=== PATIENT | female | born 1955 | race Caucasian/White ===

== ENCOUNTER → 2017-12-29 16:19 | Outpatient (CLI) | payer BC, SELFPAY ==
--- NOTE | 2017-12-29 16:24 | MM_ITS ---
MM Dig screening mamm BI w/CAD CAD Screening COMPARISON: Digital mammograms with CAD 02/15/2016 and 02/12/2014 INDICATION: There is no personal or family history of breast cancer. TECHNIQUE: Standard CC and MLO images were obtained. R2 CAD reviewed. FINDINGS: Prominent heterogenic fibroglandular densities are seen in the central portions of both breast and the findings are bilateral and symmetrical. There are few benign-appearing calcifications in each breast. There is no suspicious lesion and there are no suspicious microcalcifications. IMPRESSION: Moderate heterogenic breast density with no suspicious lesion seen BI-RADS Category: 2 Benign Finding(s) RECOMMENDED FOLLOW-UP: 1YR - 1 YEAR FOLLOW-UP (A letter has been sent to the patient regarding results of the study.)
== END ==
PROVIDERS: Family Provider Internal Medicine; PCP Internal Medicine; Visit Provider Internal Medicine
DX: Z12.31 Encounter for screening mammogram for malignant neoplasm of breast (principal)
CPT/HCPCS: 77067

== ENCOUNTER → 2018-02-13 10:36 | Outpatient (CLI) | payer BC, SELFPAY ==
--- NOTE | 2018-02-13 10:44 | XR_ITS ---
EXAM: XR cervical spine 5V HISTORY: ITS.REASON: NECK PAIN, LT ARM PAIN, HTN ORDERING PHYSICIAN: Joe Sorenson PATIENT AGE: 63 years COMPARISON: None FINDINGS: There is normal alignment. There has been prior anterior cervical disc fusion with a bone plate anteriorly at C5-C6 and C7. There is good alignment. There are disc spacers at these levels. There is mild foraminal narrowing on the left at C3-C4 and C4-C5 from facet hypertrophic change. IMPRESSION: Prior anterior cervical disc fusion with good alignment. Mild left foraminal narrowing at C3-C4 and C4-C5
== END ==
PROVIDERS: PCP Internal Medicine; Visit Provider Internal Medicine
DX: M54.2 Cervicalgia (principal); M79.602 Pain in left arm; I10 Essential (primary) hypertension
CPT/HCPCS: 72050; 93005

== ENCOUNTER 2018-03-20 13:00 | Outpatient (RCR) | payer BC, SELFPAY ==
--- NOTE | 2018-02-21 13:58 | HMH.PTOPEV ---
PT Outpatient Evaluation Rehab PT Outpatient Evaluation Start: 02/21/18 13:03 Freq: Status: Active Protocol: Document 02/21/18 13:36 PHORSHADE (Rec: 02/21/18 13:57 PHORNE [id number]) Electronically Signed By Tripp Kitchen, PT 02/21/18 13:36 Outpatient Therapy Subjective History Subjective History Pt is 63 yowf who presents with c/o neck and left UE pain x ~ 2 mos with insidious onset of symptoms. She also reports intermittent tingling/ numbness throughout the left UE. She has hx of ACDF at C5-7 ~ 5 yrs ago, HTN, OA, and hypothyroid. Chief Complaint Pain Symptom Type Ache Symptoms Relieved By Rest/Positioning Symptoms Aggravated By Physical Activity Prior Functional Limitations None Current Functional Limitations Sleeping Symptom Description Constant but Variable Level of pain today (0-10) 3 Pain scale - at its worst (0-10) 10 Cervical Eval Palpation Cervical Muscles R Cervical Paraspinal L Cervical Paraspinal R CT Junction L CT Junction R Thoracic Paraspinals L Thoracic Paraspinals Cervical/Thoracic Palpation Findings Tenderness Flexibility Deficits Upper Trapezius Muscle Length (R) Mild Tightness (L) Mild Tightness Passive Joint Mobility Cervical PIVM Dec: R C3/4 L C3/4 R C4/5 L C4/5 R C5/6 L C5/6 R C6/7 L C6/7 R C7/T1 L C7/T1 WNL: R OA L OA R AA L AA R C2/3 L C2/3 AROM Cervical Spine Extension Active Range of 0-55 Motion (degrees) Cervical Spine Flexion Active Range of 0-55 Motion (degrees) Cervical Spine Right Lateral Flexion 0-30 Active Range of Motion (degrees) Cervical Spine Left Lateral Flexion 0-40 Active Range of Motion (degrees) Cervical Spine Right Rotation Active 0-60 Range of Motion (degrees) Cervical Spine Left Rotation Active 0-55 R
== END 2018-03-20 13:05 | disposition home or self-care (01) ==
LOC: PT 13:00
PROVIDERS: Visit Provider Internal Medicine
DX: M54.2 Cervicalgia (principal); M79.602 Pain in left arm
CPT/HCPCS: 97010; 97014; 97110; 97140; 97163; G0283

== ENCOUNTER → 2018-07-16 14:55 | Outpatient (CLI) | payer BC, SELFPAY ==
--- NOTE | 2018-07-16 14:58 | XR_ITS ---
XR knee LT 3V HISTORY: ITS.REASON: LT KNEE PAIN/STIFFNESS ORDERING PHYSICIAN: Joe Sorenson PATIENT AGE: 63 years COMPARISON: None FINDINGS: There are minimal osteoarthritic changes of the medial compartment with slight decrease in the joint space and early osteophyte formation along the medial femoral condyle. Otherwise negative. IMPRESSION: Minimal osteoarthritis of the medial compartment
== END ==
PROVIDERS: PCP Internal Medicine; Visit Provider Internal Medicine
DX: M25.562 Pain in left knee (principal); M25.662 Stiffness of left knee, not elsewhere classified
CPT/HCPCS: 73562

== ENCOUNTER → 2018-09-17 12:51 | Outpatient (CLI) | payer BC, SELFPAY ==
--- NOTE | 2018-09-17 12:54 | XR_ITS ---
XR knee LT 4V HISTORY: Left knee pain, prior injury with pain ITS.REASON: 4 views WB ORDERING PHYSICIAN: Jennifer Funes MD PATIENT AGE: 63 years COMPARISON: None FINDINGS: On the sunrise view, there is a small bony density along the medial aspect of the patellofemoral joint and could represent a loose body or an avulsion type injury. There are minimal osteoarthritic changes of the medial compartment. No other significant anomalies evident. IMPRESSION: 1. Minimal osteoarthritis of medial compartment. 2. Small calcific density along the medial aspect of the patellofemoral joint posterior to the patella and could represent a loose body or a small avulsion injury
== END ==
PROVIDERS: PCP Internal Medicine; Visit Provider Orthopaedic Surgery
DX: M25.562 Pain in left knee (principal)
CPT/HCPCS: 73564

== ENCOUNTER 2018-10-05 14:30 | Outpatient (RCR) | payer BC, SELFPAY | END 2018-10-05 14:35 | disposition home or self-care (01) | LOC: PT 14:30 | PROVIDERS: Visit Provider Internal Medicine | DX: M25.562 Pain in left knee (principal) | CPT/HCPCS: 97010; 97014; 97016; 97033; 97035; 97110; 97163; G0283 ==

== ENCOUNTER → 2019-02-04 15:08 | Outpatient (CLI) | payer BC, SELFPAY ==
--- NOTE | 2019-02-04 15:11 | MM_ITS ---
PROCEDURE: MM DIG SCREENING MAMM BI W/CAD CLINICAL INDICATION: SCREENING There is no personal or family history of breast cancer. There has been a previous biopsy right breast for benign disease. COMPARISON: [facility] DIG MAMM-SCREEN KIN from 02/12/2014 [facility] DIG MAMM-SCREEN KIN from 02/15/2016 [facility] MM Dig screening mamm BI w/CAD from 12/29/2017 TECHNIQUE: Standard CC and MLO images were obtained. R2 CAD reviewed. FINDINGS: Moderate diffuse fibroglandular densities are seen in the central portions of both breasts. There are few benign-appearing microcalcifications in each breast. There is a stable tiny benign-appearing nodular density outer quadrant left breast. There is no suspicious lesion and no suspicious microcalcifications. There is small nodes in both axilla. IMPRESSION: Stable moderately dense parenchymal pattern BI-RAD Category: 2 Benign Finding(s) FOLLOW-UP: 1YR 1 Year Follow-up (A letter has been sent to the patient regarding results of the study.) Dictated by: Dr. Axel Avila MD 02/06/2019 19:[address] Axel Avila MD in [place] 02/06/2019 19:20
== END ==
PROVIDERS: PCP Internal Medicine; Visit Provider Internal Medicine
DX: Z12.31 Encounter for screening mammogram for malignant neoplasm of breast (principal)
CPT/HCPCS: 77067

== ENCOUNTER → 2019-11-12 15:40 | Outpatient (CLI) | payer OTHER, SELFPAY ==
--- NOTE | 2019-11-12 15:48 | XR_ITS ---
PROCEDURE: XR FINGER RT MIN 2V CLINICAL INDICATION: SMASHED R THUMB IN VEHICLE DOOR Posttraumatic pain COMPARISON: No exams were available for comparison FINDINGS: There is an overlying bandage artifact No obvious fracture or dislocation. Other findings:None. IMPRESSION: No acute findings. Dictated b William Lynn MD 11/12/2019 16:26 William Lynn MD in [place] 11/12/2019 16:26
== END ==
PROVIDERS: PCP Internal Medicine; Visit Provider Internal Medicine
DX: S67.01XA Crushing injury of right thumb, initial encounter (principal); W23.1XXA Caught, crushed, jammed, or pinched between stationary objects, initial encounter
CPT/HCPCS: 73140

== ENCOUNTER → 2020-01-20 09:18 | Outpatient (CLI) | payer BC, SELFPAY | PROVIDERS: PCP Internal Medicine; Visit Provider Internal Medicine | DX: Z20.828 Contact with and (suspected) exposure to other viral communicable diseases (principal); U07.1 COVID-19; R09.89 Other specified symptoms and signs involving the circulatory and respiratory systems | CPT/HCPCS: U0003 ==

== ENCOUNTER 2020-01-31 10:09 | Emergency (ER) | payer BC, SELFPAY ==
[2020-01-31 10:32] VITALS: BP 153/89; PULSE 89; RESP 17; TEMP 36.3; O2SAT 95; BMI 33.6
--- NOTE | 2020-01-31 10:48 | HMH.EDWEAK ---
ED Disposition Clinical Impression: Viral syndrome, COVID-19 Disposition: Home, Self-Care Condition on Discharge: Good Instructions: Preventing the Spread of Coronavirus Discharge Instructions Prescriptions: Ondansetron [Zofran 4mg ODT] 4 mg PO TIDP PRN #12 tab PRN Reason: Nausea Transmission Status: Pending to Clinic [facility] Referrals: Joe Sorenson [Primary Care Provider] - - Critical Care Critical Care Time: No Attestation: On 01/31/20, the high probability of a clinically significant, sudden or life threatening deterioration of the following system(s) required my full and direct attention, intervention and personal management. The time I documented below is in addition to time spent performing reported procedures but includes the following listed in this critical care notation. Medical Decision Making - Medical Records Medical records reviewed: Yes: I reviewed the patient's medical records. - Kris Inquiry Pt receiving controlled substance: No Vital Signs: 01/31/20 10:32 01/31/20 11:17 Temperature 97.4 F L Temperature Source Oral Pulse Rate [Right Radial] 89 71 Respiratory Rate 17 20 Blood Pressure [Right Arm] 153/89 H 127/73 Blood Pressure Mean [Right Arm] 110 91 Blood Pressure Source [Right Arm] Automatic Cuff Blood Pressure Position [Right Arm] Sitting 02 Sat by Pulse Oximetry 95 96 Oxygen Delivery Method Room Air Room Air - Lab Data Lab Results 01/31/20 10:30: WBC 7.8, RBC 4.60, Hgb 13.9, Hct 41.6, MCV 90.5, MCH 30.1, MCHC 33.3, RDW 12.4, Plt Count 432 H, MPV 6.7 L, Neut % (Auto) 59.7, Lymph % (Auto) 28.0, [place] % (Auto) 9.8 H, Eos % (Auto) 1.6, Baso % (Auto) 0.9, Neut # (Auto) 4.7, Lymph # (Auto) 2.2, [place] # (Auto) 0.8, Eos # (Auto) 0.1, Baso # (Auto) 0.1 01/31/20 10:30: Sodium 139, Potassium 3.5, Chloride 98, Carbon Dioxide 28, Anion Gap 16.5 H, BUN 15, Creatinine 0.90, Estimated Creat Clear 79, Estimated GFR 63, Est GFR ( Amer) 77, Glucose 130 H, Calcium 10.2, Total Bilirubin 0.6, AST 59 H, ALT 112 H, Alkaline Phosphatase 91, Total Protein 8.1, Albumin 4.6, Globulin 3.5 H, Albumin/Globulin Ratio 1.3 01/31/20 10:46: Urine Color Yellow, Urine Appearance Clear, Urine pH 6.0, Ur Specific [place] 1.010, Urine Protein Negative, Urine Glucose (UA) Negative, Urine Ketones Negative, Urine Blood Negative, Urine Nitrate Negative, Urine Bilirubin Negative, Urine Urobilinogen 0.2, Ur Leukocyte Esterase Trace, Urine RBC Occasional, Urine WBC 3-5, Ur Squamous Epith Cells 3-5 Result diagrams: 01/31/20 10:30 01/31/20 10:30 Orders (Tests/Meds): ED MEDICATIONS Discontinued Medications Generic Name Dose Route Start Last Admin Trade Name Freq PRN Reason Stop Dose Admin Acetaminophen 1,000 mg 01/31/20 10:39 01/31/20 10:46 Acetaminophen 500mg Tab PO 01/31/20 10:40 1,000 mg ONCE ONE Administration Sodium Chloride 1,000 mls @ 999 mls/hr 01/31/20 10:45 01/31/20 10:39 Sod Chlor 0.9% 1000ml Bag IV 01/31/20 11:45 999 mls/hr .Q1H1M PEDRO Administration Ondansetron HCl 4 mg 01/31/20 10:36 01/31/20 10:39 Ondansetron 4mg/2ml Vial IV 01/31/20 10:37 4 mg ONCE ONE Administration ORDERS Category Date Time Status XR chest portable Stat Exams 01/31/20 11:36 Taken - Radiology Data #1 Image(s): Chest Image Reviewed: Yes I reviewed the patient's radiology results, Yes I reviewed the patient's radiology image bilateral patchy opacities, chronic changes - Reevaluation(s) Time: 12:13 Reevaluation #1: On reevaluation, patient is feeling better. There is no hypoxia with ambulation. No respiratory distress. Patient needs to remain in quarantine until she is able to negative test there is asymptomatic 48 hours. Given strict return precautions. Verbalized understanding. Medical Decision Narrative: 64-year-old female presented to the emergency department with generalized myalgias and weakness. Patient recently diagnosed with coronavirus. T
[2020-01-31 10:51] LABS: Microscopic, Urine URINE MICROSCOPIC (MICROSCOPIC)
[2020-01-31 10:55] LABS: Basophils # 0.1 K/mm3 (0-0.2); Basophils % 0.9 % (0.1-2.0); Eosinophils # 0.1 K/mm3 (0.0-0.4); Eosinophils % 1.6 % (0.1-12.0); Hematocrit 41.6 % (37.0-47.0); Hemoglobin 13.9 g/dL (12.2-16.2); Lymphocytes # 2.2 K/mm3 (0.7-4.5); Mean Corpuscular HGB Conc 33.3 g/dL (31.8-35.4); Mean Corpuscular Hemoglobin 30.1 pg (27.0-31.2); Mean Corpuscular Volume 90.5 fl (81-99); Mean Platelet Volume 6.7 fl (7.4-10.4); Monocytes # 0.8 K/mm3 (0.1-1.0); Monocytes % 9.8 % (1.7-9.3); Neutrophils # 4.7 K/mm3 (1.8-7.8); Neutrophils % 59.7 % (37.0-80.0); Platelet Count 432 K/mm3 (142-424); Red Cell Distribution Width 12.4 % (11.5-17.5); White Blood Count 7.8 K/mm3 (4.8-10.8)
[2020-01-31 10:55] LABS: Appearance,Urine CLEAR (Clear); Bilirubin,Urine Negative (Negative); Blood, Urine Negative (Negative); Color,Urine YELLOW (Yellow); Glucose,Urine (UA) Negative (Negative); Ketones,Urine Negative (Negative); Leukocyte Esterase,Urine TRACE (Negative); Nitrate,Urine Negative (Negative); Protein,Urine Negative (Negative); Urobilinogen,Urine 0.2 EU/dl (0.2)
[2020-01-31 11:00] LABS: Chloride 98 mmol/L (98-107); Potassium 3.5 mmoL/L (3.5-5.1); Sodium 139 mmol/L (136-145)
[2020-01-31 11:02] LABS: Blood Urea Nitrogen 15 mg/dl (7-17)
[2020-01-31 11:03] LABS: Alanine Aminotransferase 112 U/L (12-78); Albumin Level 4.6 g/dl (3.5-5.0); Albumin/Globulin Ratio 1.3 (1.1-1.8); Alkaline Phosphatase 91 U/L (38-126); Anion Gap 16.5 mEq/L (5-15); Aspartate Amino Transferase 59 U/L (14-36); Bilirubin,Total 0.6 mg/dl (0.2-1.3); Calcium 10.2 mg/dl (8.4-10.2); Carbon Dioxide 28 mmol/L (22.0-30.0); Creatinine Clearance Estimated 79 mL/min (50-200); Estimated Glomerular Filt Rate 63 ml/min (>60); GFR (African American) 77 ML/MIN (>60); Globulin 3.5 g/dL (1.3-3.2); Glucose 130 mg/dl (74-100); Total Protein,Serum 8.1 g/dl (6.3-8.2)
[2020-01-31 11:12] LABS: RBC,Urine Occasional #/hpf (0-3)
[2020-01-31 11:17] VITALS: BP 127/73; PULSE 71; RESP 20; O2SAT 96
[2020-01-31 11:30] VITALS: BP 119/67; PULSE 70; RESP 22; O2SAT 96
--- NOTE | 2020-01-31 11:36 | XR_ITS ---
PROCEDURE: XR CHEST PORTABLE CLINICAL HISTORY: cough COMPARISON: No exams were available for comparison FINDINGS: The cardiomediastinal silhouette and pulmonary vascularity are within normal limits. The lungs are clear without infiltrates, suspicious nodules, or pleural effusions. Minimal atelectatic or fibrotic changes are present in the left lower lobe. Bone plate is present over lower cervical spine. IMPRESSION: Minimal left basilar atelectasis or fibrosis otherwise negative Dictated by: William Lynn MD 01/31/2020 12:18 William Lynn MD in [place] 01/31/2020 12:18
[2020-01-31 12:00] VITALS: BP 122/61; PULSE 68; RESP 18; O2SAT 95
[2020-01-31 12:30] VITALS: BP 137/72; PULSE 68; RESP 18; O2SAT 94
[2020-01-31 13:22] VITALS: BP 132/74; PULSE 78; RESP 16; TEMP 36.6; O2SAT 98
== END 2020-01-31 13:24 | disposition home or self-care (01) ==
PROVIDERS: Emergency Provider Emergency Medicine; PCP Internal Medicine
DX: U07.1 COVID-19 (principal); R53.83 Other fatigue; Z87.891 Personal history of nicotine dependence
CPT/HCPCS: 71045; 80053; 81001; 85025; 96365; 96375; 99283; J2405

== ENCOUNTER → 2020-02-12 10:19 | Outpatient (CLI) | payer BC, SELFPAY ==
[2020-02-12 14:43] LABS: Basophils % 0.6 % (0.1-2.0); Eosinophils # 0.2 K/mm3 (0.0-0.4); Eosinophils % 2.2 % (0.1-12.0); Hemoglobin 12.6 g/dL (12.2-16.2); Lymphocytes # 2.5 K/mm3 (0.7-4.5); Lymphocytes % 34.9 % (10-50); Mean Corpuscular HGB Conc 32.4 g/dL (31.8-35.4); Mean Corpuscular Hemoglobin 29.6 pg (27.0-31.2); Mean Corpuscular Volume 91.5 fl (81-99); Mean Platelet Volume 7.7 fl (7.4-10.4); Monocytes # 0.7 K/mm3 (0.1-1.0); Monocytes % 9.9 % (1.7-9.3); Neutrophils # 3.7 K/mm3 (1.8-7.8); Neutrophils % 52.3 % (37.0-80.0); Platelet Count 489 K/mm3 (142-424); Red Blood Count 4.26 M/mm3 (4.20-5.40); Red Cell Distribution Width 12.5 % (11.5-17.5)
[2020-02-13 22:02] LABS: Covid-19 Nasal PCR Sendout Lex POSITIVE
== END ==
PROVIDERS: PCP Internal Medicine; Visit Provider Internal Medicine
DX: Z20.828 Contact with and (suspected) exposure to other viral communicable diseases (principal); U07.1 COVID-19
CPT/HCPCS: 36415; 85025; U0004

== ENCOUNTER → 2020-02-19 09:01 | Outpatient (CLI) | payer BC, SELFPAY ==
[2020-02-20 15:08] LABS: Covid-19 Nasal PCR Sendout Lex Positive
== END ==
PROVIDERS: PCP Internal Medicine; Visit Provider Internal Medicine
DX: Z20.828 Contact with and (suspected) exposure to other viral communicable diseases (principal); U07.1 COVID-19
CPT/HCPCS: U0004

== ENCOUNTER 2020-02-26 08:59 | Emergency (ER) | payer BC, SELFPAY ==
[2020-02-26 09:17] VITALS: BP 135/78; PULSE 75; RESP 18; TEMP 36.1; O2SAT 98; BMI 35.4
--- NOTE | 2020-02-26 09:20 | HMH.EDUTC ---
[facility] Disposition Clinical Impression: Encounter for laboratory testing for COVID-19 virus Disposition: Home, Self-Care Condition on Discharge: Good Instructions: Preventing the Spread of Coronavirus Discharge Instructions Additional Instructions: *Monitor Temp, Over the counter Motrin or Tylenol as directed/as needed Tylenol every 4 hours and Motrin every 6 hours (as long as your family doctor has told you that you can take it) for fever or pain. and straight to ER if unable to lower temp less than 101.0 after medication given *Warm salt water gargles may help to soothe the throat *Throat Lozenges *Warm fluids like tea with honey may help to soothe the throat *Sleep elevated *Humidifier/Vaporizer *Flonase 2 sprays in each nostril daily but be aware that it may take 2-3 days before you notice improvement Follow up IMMEDIATELY for new or worsening symptoms or no Noticeable improvement over the next 48-72 hours. 911 for difficulty breathing or swallowing You was tested for today for COVID19 your test result should be back in the next 24-48 hours, you may call to the [facility] tomorrow to see if your test results are back and the result [phone] You was given a handout with instructions for Self Quarantine and Self isolation for while you wait on test results and what to do if they are positive If you are positive the Health Dept will be contacting you also Referrals: Joe Sorenson [Primary Care Provider] - As needed Forms: Work/School Release Time of Disposition: 09:23 Medical Decision Making - Kris Inquiry Pt receiving controlled substance: No Kris was queried for this patient: No Vital Signs: 02/26/20 09:17 Temperature 97 F L Temperature Source Oral Pulse Rate [Radial] 75 Respiratory Rate 18 Blood Pressure [Right Arm] 135/78 Blood Pressure Mean [Right Arm] 97 Blood Pressure Source [Right Arm] Automatic Cuff Blood Pressure Position [Right Arm] Sitting 02 Sat by Pulse Oximetry 98 Oxygen Delivery Method Room Air Orders (Tests/Meds): ORDERS Category Date Time Status Covid-19 Nasal PCR ([facility]) Routine Lab 02/26/20 09:20 Ordered [facility] HPI - General Stated complaint: repeat covid test Time Seen by Provider: 02/26/20 09:20 Mode of Arrival: Ambulatory Source of Information: Patient Limitations: No Limitations Description of Symptoms (Recalled from Triage Doc. by RN): positive for covid 38 days ago. here for a retest for work HEENT Symptoms (Recalled from RN notes): No Resp Symptoms (Recalled from RN notes): No Skin Symptoms (Recalled from RN notes): No MS Symptoms (Recalled from RN notes): No Functional Status (Recalled from RN notes): wnl - History of Present Illness Provider Complaint: Patient states that she was dx with COVID 38days ago States that ever since she has tested positive for COVID States that she is back today to get another test to see if she has a negative result now Denies any symptom - Related Data Home Medications Medication Instructions Recorded Confirmed levothyroxine 125 mcg tablet 125 mcg PO DAILY 09/17/18 10/01/18 triamterene 37.5 1 tab PO DAILY 09/17/18 10/01/18 mg-hydrochlorothiazide 25 mg tablet sertraline 25 mg tablet 25 mg PO DAILY 10/01/18 10/01/18 Previous Rx's Medication Instructions Recorded Ondansetron [Zofran 4mg ODT] 4 mg PO TIDP PRN #12 tab 01/31/20 Allergies Allergy/AdvReac Type Severity Reaction Status Date / Time codeine [CODEINE] Allergy Unknown HYPER, Verified 10/01/18 14:10 RESTLESS Penicillins [PENICILLINS] Allergy Unknown RESP Verified 10/01/18 14:10 DISTRESS - Worker's Comp Is this a Worker's Comp case?: No H History - Hepatitis A Screen Drug use history?: No High risk sexual behaviors?: No History of sexually transmitted infection?: No Currently employed?: No Childcare worker?: No Do you have indoor plumbing?: Yes Do you have electricity?: Yes Attestation statement:: This patient has been screene
[2020-02-26 09:35] VITALS: BP 135/78; PULSE 75; RESP 18; TEMP 36.1; O2SAT 98
--- NOTE | 2020-02-26 12:57 | PC.NURSE ---
Patient notified of positive covid results.
== END 2020-02-26 09:36 | disposition home or self-care (01) ==
PROVIDERS: Emergency Provider Nurse Practitioner; PCP Internal Medicine
DX: U07.1 COVID-19 (principal)
CPT/HCPCS: 99201; U0003

== ENCOUNTER → 2020-03-04 09:09 | Outpatient (CLI) | payer BC, SELFPAY ==
[2020-03-04 20:54] LABS: Covid-19 Nasal PCR Sendout Lex Positive
== END ==
PROVIDERS: PCP Internal Medicine; Visit Provider Internal Medicine
DX: Z20.828 Contact with and (suspected) exposure to other viral communicable diseases (principal); U07.1 COVID-19
CPT/HCPCS: U0004

== ENCOUNTER → 2020-03-13 09:16 | Outpatient (CLI) | payer BC, SELFPAY ==
[2020-03-14 17:47] LABS: Covid-19 Nasal PCR Sendout Lex Not Detected
== END ==
PROVIDERS: PCP Internal Medicine; Visit Provider Internal Medicine
DX: Z03.818 Encounter for observation for suspected exposure to other biological agents ruled out (principal)
CPT/HCPCS: U0004

== ENCOUNTER → 2020-06-17 14:56 | Outpatient (CLI) | payer BC, SELFPAY ==
--- NOTE | 2020-06-17 15:09 | CA_ITS ---
APPROVED REPORT EXAM: Comprehensive 2D, Doppler, and color-flow Echocardiogram Cloth Tester Quality: Emma Guillen RVT Ht: 5 ft 3 in Wt: 205lbs BSA: 1.95 BP: 124/70 mmHg Indications: JACKMAN,HTN,S/P COVID 2D Dimensions LVOT 1.89 cm (M/F) 1.5-2.5 LA Volume 17.70 mL LA Volume Index 9.07 mL/m2 (M/F) 16-34 M-Mode Dimensions RVDd 2.53 cm (0.9-2.6) LA Diam 2.93 cm (1.9-4.0) LVDd 4.87 cm (3.5-5.7) Ao Diam 2.80 cm (2.0-3.7) LVDs 3.30 cm (3.5-5.7) IVSd 0.44 cm (0.6-1.1) PWd 0.72 cm (0.6-1.1) EF (Teich) 60.30% FS 32.20% EDV (Teich) 111.20 mL TAPSE 1.45 (<1.7) ESV (Teich) 44.10 mL LV Diastology E Decel Time 227.00 (160-240 msec) E/A Ratio 0.9 MED E' 7.40 (< 7 cm/sec) E'/MED E' Ratio 10.32 (>14) LAT E' 11.50 (<10 cm/sec) E/LAT E' Ratio 6.64 (>14) Mitral Valve MV E Max Jeremi. 76.00 (40-130 cm/s) MV A Velocity 80.00 (40-130 cm/s) E/A Ratio 0.96 MV Decel. Time 227.00 (160-240 ms) MV PHT 66.00 ms Pulmonary Valve PV Peak Velocity 73.00 (50-150 cm/s) Tricuspid Valve TR P. Velocity 247.00 cm/s RAP Estimate 10.00 mmHg RVSP 34.50 mmHg Left Ventricle Left atrium is mildly enlarged, left ventricle is normal size, mild concentric left ventricular hypertrophy, visually estimated ejection fraction 55% with no regional wall motion abnormality, grade 1 diastolic dysfunction seen without tissue Doppler evidence of raise left atrial pressure. Right Ventricle Right atrium and right ventricle are normal size and contractility. Aortic Valve Aortic valve is minimally thickened and fibrosed, there is no aortic stenosis or aortic insufficiency. Mitral Valve Mitral valve is grossly normal, there is trace mitral regurgitation. Tricuspid Valve Tricuspid valve grossly normal, there is trace tricuspid regurgitation, tricuspid regurgitation jet velocity is inadequate for calculation of the right ventricular systolic pressure. Pulmonic Valve Pulmonic valve is poorly visualized. Great Vessels Aortic root is normal size. Pericardium No significant pericardial effusion noted. Conclusion 1. Mildly in the left atrium, normal left ventricular size, mild concentric left ventricular hypertrophy, visually estimated ejection fraction 55% with no regional wall motion abnormality grade 1 diastolic dysfunction seen without tissue Doppler evidence of raise left atrial pressure. 2. Trace mitral and tricuspid regurgitation. 3. No significant pericardial effusion noted. Electronically signed by : Jayden Chilel, 06/18/2020 16:28:12
== END ==
PROVIDERS: PCP Internal Medicine; Visit Provider Internal Medicine
DX: R06.09 Other forms of dyspnea (principal); I10 Essential (primary) hypertension
CPT/HCPCS: 93306

== ENCOUNTER → 2021-01-15 15:15 | Outpatient (CLI) | payer BC, SELFPAY ==
--- NOTE | 2021-01-15 15:17 | MM_ITS ---
PROCEDURE INFORMATION: Exam: MG Bilateral Screening 3D Mammography Exam date and time: 01/15/2021 3:17 PM Age: 65 years old Clinical indication: Screening mammogram TECHNIQUE: Imaging protocol: Bilateral screening tomosynthesis and 2D mammography including computer-aided detection (CAD) when performed. COMPARISON: 02/04/2019, 12/29/2017, 02/15/2016, 01/25/2013 FINDINGS: MAMMOGRAPHY: Breast composition: The breast tissue is heterogeneously dense, which may obscure small masses. Mass: Stable benign-appearing nodules are present in the right breast. No new or morphologically suspicious nodule has developed to suggest malignancy. Architectural distortion: No new or suspicious architectural distortion. Calcifications: Stable benign-appearing calcifications are present. No new or suspicious cluster of microcalcifications have developed. Asymmetric density: No new or suspicious asymmetric density is present Skin thickening: None. Axillary adenopathy: None. IMPRESSION: No mammographic evidence of malignancy. Recommend annual screening mammography unless otherwise clinically indicated. ASSESSMENT: BI-RADS category 2: Benign
== END ==
PROVIDERS: PCP Internal Medicine; Visit Provider Internal Medicine
DX: Z12.31 Encounter for screening mammogram for malignant neoplasm of breast (principal)
CPT/HCPCS: 77063; 77067

== ENCOUNTER → 2021-07-02 14:38 | Outpatient (CLI) | payer BC, SELFPAY ==
--- NOTE | 2021-07-02 | CA_ITS ---
FINAL REPORT TECHNIQUE: Right lower extremity venous duplex was performed with augmentation and compression. CLINICAL HISTORY: RLE pain edema, obesity FINDINGS: Proper flow is seen throughout the deep venous system. There is no evidence of deep venous thrombosis. IMPRESSION: No deep venous thrombosis. Reviewed, Interpreted and Dictated by Flaco Patino MD Transcribed by Tabatha Peterson Authenticated by Flaco Patino MD on 07/02/2021 03:45:08 PM [facility]
== END ==
PROVIDERS: PCP Internal Medicine; Visit Provider Internal Medicine
DX: M79.604 Pain in right leg (principal)
CPT/HCPCS: 93971

== ENCOUNTER → 2021-11-22 11:45 | Outpatient (CLI) | payer BC, SELFPAY ==
--- NOTE | 2021-11-22 | ECG_ITS ---
APPROVED REPORT Exam: Resting ECG HR:66 bpm ECG Measurements Heart Rate 66 AXES SD 154 P 67 QRSd 79 QRS 80 QT 375 T 67 QTc 389 Conclusion SINUS RHYTHM INCOMPLETE RBBB OTHERWISE A NORMAL EKG Electronically signed by : Joe Sorenson MD 11/24/2021 13:59:16
[2021-11-22 12:28] LABS: Basophils # 0.2 K/mm3 (0-0.2); Basophils % 2.1 % (0.1-2.0); Eosinophils # 0.1 K/mm3 (0.0-0.4); Eosinophils % 1.2 % (0.1-12.0); Hematocrit 43.4 % (37.0-47.0); Hemoglobin 14.2 g/dL (12.2-16.2); Lymphocytes # 2.2 K/mm3 (0.7-4.5); Lymphocytes % 26.4 % (10-50); Mean Corpuscular HGB Conc 32.6 g/dL (31.8-35.4); Mean Platelet Volume 7.8 fl (7.4-10.4); Monocytes # 0.6 K/mm3 (0.1-1.0); Monocytes % 7.3 % (1.7-9.3); Neutrophils # 5.3 K/mm3 (1.8-7.8); Platelet Count 433 K/mm3 (142-424); Red Blood Count 4.57 M/mm3 (4.20-5.40); Red Cell Distribution Width 13.1 % (11.5-17.5); White Blood Count 8.4 K/mm3 (4.8-10.8)
[2021-11-22 12:43] LABS: Chloride 104 mmol/L (98-107); Potassium 4.1 mmoL/L (3.5-5.1); Sodium 140 mmol/L (136-145)
[2021-11-22 12:45] LABS: Amylase 58 U/L (30-110); Blood Urea Nitrogen 18 mg/dl (7-17); Estimated Glomerular Filt Rate 84 ml/min (>60); GFR (African American) 102 ML/MIN (>60)
[2021-11-22 12:46] LABS: Alanine Aminotransferase 39 U/L (12-78); Albumin Level 4.4 g/dl (3.5-5.0); Albumin/Globulin Ratio 1.4 (1.1-1.8); Alkaline Phosphatase 99 U/L (38-126); Anion Gap 10.1 mEq/L (5-15); Aspartate Amino Transferase 36 U/L (14-36); Bilirubin,Total 0.3 mg/dl (0.2-1.3); Calcium 10.5 mg/dl (8.4-10.2); Carbon Dioxide 30 mmol/L (22.0-30.0); Globulin 3.2 g/dL (1.3-3.2); Glucose 106 mg/dl (74-100); Total Protein,Serum 7.6 g/dl (6.3-8.2)
[2021-11-22 13:06] LABS: Troponin I < 0.01 ng/ml (0.00-0.034)
== END ==
PROVIDERS: PCP Internal Medicine; Visit Provider Internal Medicine
DX: R10.9 Unspecified abdominal pain (principal); R11.2 Nausea with vomiting, unspecified
CPT/HCPCS: 36415; 80053; 82150; 84484; 85025; 93005

== ENCOUNTER → 2022-02-21 16:52 | Outpatient (CLI) | payer MEDICARE, SELFPAY ==
[2022-02-21 17:54] LABS: Chol/HDL Ratio 5.4 (1-3.5); Cholesterol 228 mg/dl (140-200); HDL Cholesterol 42 mg/dl (40-60); Triglycerides 322 mg/dl (30-150); VLDL Cholesterol 64 mg/dL (0-40)
[2022-02-21 18:05] LABS: Direct LDL Cholesterol 121.55 mg/dL (100-129)
[2022-02-21 18:26] LABS: Thyroid Stimulating Hormone 0.34 uIU/mL (0.465-4.68)
== END ==
PROVIDERS: PCP Internal Medicine; Visit Provider Internal Medicine
DX: E03.9 Hypothyroidism, unspecified (principal); I10 Essential (primary) hypertension; I87.2 Venous insufficiency (chronic) (peripheral); E78.5 Hyperlipidemia, unspecified
CPT/HCPCS: 80061; 84443

== ENCOUNTER → 2022-03-02 12:54 | Outpatient (CLI) | payer MEDICARE, SELFPAY ==
[2022-03-02 13:35] VITALS: PULSE 78; PULSE 83
== END ==
PROVIDERS: PCP Internal Medicine; Visit Provider Internal Medicine
DX: J44.9 Chronic obstructive pulmonary disease, unspecified (principal)
CPT/HCPCS: 94060; 94640

== ENCOUNTER → 2022-03-17 09:41 | Outpatient (CLI) | payer MEDICARE, SELFPAY ==
--- NOTE | 2022-03-17 09:46 | US_ITS ---
FINAL REPORT CLINICAL HISTORY: RUQ PAIN,NAUSEA FINDINGS: Sonographic images of the abdomen were obtained. The liver is increased echogenicity consistent with fatty infiltration. The gallbladder has an unremarkable appearance without evidence of gallstones. There is no evidence of biliary ductal dilatation. The common hepatic duct measures 3 mm, which is within normal limits. Limited images of the pancreas are unremarkable. The spleen size is normal. The right kidney measures 9.3 cm in length. The left kidney measures 9.9 cm in length. There is a possible 1.6 cm right renal cyst. There is no evidence of hydronephrosis. The aorta has an unremarkable appearance. Limited images of the inferior vena cava are unremarkable. IMPRESSION: Fatty liver. Possible 1.6 cm right renal cyst. Reviewed, Interpreted and Dictated by Gilberto Cardenas III, MD Transcribed by Tabatha Peterson Authenticated and . [facility]
== END ==
PROVIDERS: PCP Internal Medicine; Visit Provider Internal Medicine
DX: R10.11 Right upper quadrant pain (principal); R11.0 Nausea
CPT/HCPCS: 76700

== ENCOUNTER → 2022-05-04 12:20 | Outpatient (CLI) | payer MEDICARE, SELFPAY ==
[2022-05-04 13:58] LABS: Thyroid Stimulating Hormone 0.39 uIU/mL (0.465-4.68)
== END ==
PROVIDERS: PCP Internal Medicine; Visit Provider Internal Medicine
DX: E03.9 Hypothyroidism, unspecified (principal); I10 Essential (primary) hypertension
CPT/HCPCS: 84443

== ENCOUNTER → 2022-08-01 14:07 | Outpatient (CLI) | payer MEDICARE, SELFPAY ==
[2022-08-01 15:48] LABS: Thyroid Stimulating Hormone 4.09 uIU/mL (0.465-4.68)
== END ==
PROVIDERS: PCP Internal Medicine; Visit Provider Internal Medicine
DX: E03.9 Hypothyroidism, unspecified (principal)
CPT/HCPCS: 36415; 84443

== ENCOUNTER → 2022-08-15 11:16 | Outpatient (CLI) | payer MEDICARE, SELFPAY ==
--- NOTE | 2022-08-15 11:21 | XR_ITS ---
FINAL REPORT CLINICAL HISTORY: LOW BACK PAIN,STIFFNESS x 1 week FINDINGS: LUMBAR SPINE Five views were obtained. There is no acute fracture. There is no malalignment. There is mild diffuse degenerative disc disease and moderate facet arthropathy. There is no soft tissue abnormality. IMPRESSION: Degenerative change with no acute bony abnormality. Reviewed, Interpreted and Dictated by Shaheen Salgado MD Transcribed by Traci Lopez Authenticated and [facility]
== END ==
PROVIDERS: PCP Internal Medicine; Visit Provider Internal Medicine
DX: M54.50 Low back pain, unspecified (principal); M25.60 Stiffness of unspecified joint, not elsewhere classified
CPT/HCPCS: 72110

== ENCOUNTER 2022-09-08 16:00 | Outpatient (RCR) | payer MEDICARE, SELFPAY | END 2022-09-08 16:05 | disposition home or self-care (01) | LOC: PT 16:00 | PROVIDERS: PCP Internal Medicine; Visit Provider Internal Medicine | DX: M54.50 Low back pain, unspecified (principal); M54.2 Cervicalgia; M62.838 Other muscle spasm | CPT/HCPCS: 97010; 97014; 97110; 97140; 97163; G0283 ==

== ENCOUNTER → 2023-01-11 15:21 | Outpatient (CLI) | payer MEDICARE, SELFPAY ==
--- NOTE | 2023-01-11 15:23 | XR_ITS ---
FINAL REPORT CLINICAL HISTORY: Foot Pain FINDINGS: Left foot Three views were obtained. There is no acute fracture or dislocation. There is mild degenerative change of the 1st metatarsophalangeal joint. Pes planus deformity is identified. There is a plantar calcaneal spur. No soft tissue abnormality is identified. IMPRESSION: Degenerative changes as above. Reviewed, Interpreted and Dictated by Gilberto Cardenas III, MD Transcribed by Rosa Packer Authenticated and [facility]
--- NOTE | 2023-01-11 15:23 | XR_ITS ---
FINAL REPORT CLINICAL HISTORY: Foot pain FINDINGS: Right foot Three views were obtained. There is no acute fracture or dislocation. There is mild degenerative change of the 1st metatarsophalangeal joint. Pes planus deformity is identified. There is a plantar calcaneal spur. No soft tissue abnormality is identified. IMPRESSION: Degenerative changes as above. Reviewed, Interpreted and Dictated by Gilberto Cardenas III, MD Transcribed by Rosa Packer Authenticated and [facility]
== END ==
PROVIDERS: PCP Internal Medicine; Visit Provider Nurse Practitioner Family
DX: M72.2 Plantar fascial fibromatosis; M79.672 Pain in left foot; M79.671 Pain in right foot
CPT/HCPCS: 73630

== ENCOUNTER → 2023-01-31 17:09 | Outpatient (CLI) | payer MEDICARE, SELFPAY ==
[2023-01-31 18:47] LABS: Basophils # 0.1 K/mm3 (0-0.2); Basophils % 0.5 % (0.1-2.0); Eosinophils # 0.2 K/mm3 (0.0-0.4); Eosinophils % 2.3 % (0.1-12.0); Hematocrit 41.3 % (37.0-47.0); Hemoglobin 14.1 g/dL (12.2-16.2); Lymphocytes # 2.8 K/mm3 (0.7-4.5); Lymphocytes % 32.3 % (10-50); Mean Corpuscular HGB Conc 34.1 g/dL (31.8-35.4); Mean Corpuscular Hemoglobin 31.8 pg (27.0-31.2); Mean Corpuscular Volume 93.3 fl (81-99); Mean Platelet Volume 8.8 fl (7.4-10.4); Monocytes # 0.8 K/mm3 (0.1-1.0); Neutrophils # 4.8 K/mm3 (1.8-7.8); Neutrophils % 55.9 % (37.0-80.0); Platelet Count 363 K/mm3 (142-424); Red Blood Count 4.42 M/mm3 (4.20-5.40); Red Cell Distribution Width 12.9 % (11.5-17.5); White Blood Count 8.5 K/mm3 (4.8-10.8)
[2023-01-31 19:08] LABS: Alanine Aminotransferase 34 U/L (12-78); Albumin Level 4.2 g/dl (3.5-5.0); Albumin/Globulin Ratio 1.6 (1.1-1.8); Alkaline Phosphatase 81 U/L (38-126); Anion Gap 16.5 mEq/L (5-15); Aspartate Amino Transferase 34 U/L (14-36); Bilirubin,Total 0.2 mg/dl (0.2-1.3); Blood Urea Nitrogen 20 mg/dl (7-17); Calcium 9.8 mg/dl (8.4-10.2); Carbon Dioxide 26 mmol/L (22.0-30.0); Chloride 100 mmol/L (98-107); Chol/HDL Ratio 5.3 (1-3.5); Cholesterol 217 mg/dl (140-200); Estimated Glomerular Filt Rate 63 ml/min (>60); GFR (African American) 76 ML/MIN (>60); Globulin 2.6 g/dL (1.3-3.2); Glucose 92 mg/dl (74-100); HDL Cholesterol 41 mg/dl (40-60); Potassium 4.5 mmoL/L (3.5-5.1); Sodium 138 mmol/L (136-145); Total Protein,Serum 6.8 g/dl (6.3-8.2); Triglycerides 337 mg/dl (30-150); VLDL Cholesterol 67 mg/dL (0-40)
[2023-01-31 19:18] LABS: Direct LDL Cholesterol 118.09 mg/dL (100-129)
[2023-01-31 19:37] LABS: Thyroid Stimulating Hormone 1.16 uIU/mL (0.465-4.68)
== END ==
PROVIDERS: PCP Internal Medicine; Visit Provider Internal Medicine
DX: I10 Essential (primary) hypertension (principal); E03.9 Hypothyroidism, unspecified; M17.12 Unilateral primary osteoarthritis, left knee; F43.29 Adjustment disorder with other symptoms; J44.9 Chronic obstructive pulmonary disease, unspecified; M54.42 Lumbago with sciatica, left side; M47.812 Spondylosis without myelopathy or radiculopathy, cervical region; Z87.891 Personal history of nicotine dependence
CPT/HCPCS: 80053; 80061; 84443; 85025

== ENCOUNTER → 2023-03-30 10:12 | Outpatient (CLI) | payer MEDICARE, SELFPAY ==
--- NOTE | 2023-03-30 10:16 | XR_ITS ---
FINAL REPORT CLINICAL HISTORY: left knee pain COMPARISON: 07/16/2018 FINDINGS: Left knee Three views were obtained. There is no acute fracture or dislocation. There is moderate medial compartment joint space narrowing. There is sharpening of the tibial spines. There is a small osteophyte along the undersurface of the patella. IMPRESSION: Moderate changes of osteoarthritis, significantly progressed since previous. Reviewed, Interpreted and Dictated by Flaco Patino MD Transcribed by Rosa Packer Authenticated and [facility]
== END ==
PROVIDERS: PCP Internal Medicine; Visit Provider Orthopaedic Surgery
DX: M25.562 Pain in left knee (principal)
CPT/HCPCS: 73562

== ENCOUNTER 2023-04-17 11:15 | Outpatient (CLI) | payer MEDICARE, SELFPAY ==
--- NOTE | 2023-04-17 11:19 | XR_ITS ---
FINAL REPORT CLINICAL HISTORY: COUGH,FEVER x 1 week COPD x 2 yrs former smoker of 40 yrs FINDINGS: 2 views of the chest were obtained . The heart is normal in size. The mediastinum is within normal limits. There is bronchial wall consistent with bronchitis. There is no pneumothorax. Osseous structures demonstrate postoperative changes of the lower cervical spine. IMPRESSION: Bronchial wall thickening consistent with bronchitis. Reviewed, Interpreted and Dictated by Gilberto Cardenas III, MD Transcribed by Rashida Genao Authenticated and . [facility]
== END 2023-04-17 23:59 ==
LOC: RAD 11:16
PROVIDERS: PCP Internal Medicine; Visit Provider Internal Medicine
DX: J44.1 Chronic obstructive pulmonary disease with (acute) exacerbation (principal); R50.9 Fever, unspecified; Z87.891 Personal history of nicotine dependence
CPT/HCPCS: 71046

== ENCOUNTER 2023-06-21 06:48 | Outpatient (CLI) | payer MEDICARE, SELFPAY ==
--- NOTE | 2023-06-21 06:51 | US_ITS ---
FINAL REPORT CLINICAL HISTORY: RUQ PAIN FINDINGS: RIGHT UPPER QUADRANT ULTRASOUND Sonographic images of the right upper quadrant were obtained. The pancreas is normal. There is fatty infiltration of the liver. The gallbladder appears normal without evidence of gallstones.The common duct measures 2 mm. Limited images of the right kidney are normal. IMPRESSION: Fatty liver. Reviewed, Interpreted and Dictated by Gilberto Cardenas III, MD Transcribed by Rosa Packer Authenticated and [facility]
== END 2023-06-21 23:59 ==
LOC: RAD 06:48
PROVIDERS: PCP Internal Medicine; Visit Provider Internal Medicine
DX: R10.11 Right upper quadrant pain (principal); R11.2 Nausea with vomiting, unspecified
CPT/HCPCS: 76705

== ENCOUNTER 2023-07-25 10:17 | Outpatient (CLI) | payer MEDICARE, SELFPAY ==
--- NOTE | 2023-07-25 10:22 | NM_ITS ---
FINAL REPORT CLINICAL HISTORY: RUQ PAIN 10:35AM 8.24 MCI TC CHOLETEC 1.9 MCG CCK MILD PAIN WITH CCK COMPARISON: None FINDINGS: Sequential anterior projection images of the abdomen were obtained after the intravenous injection of 8.24 mCi technetium 99m Choletec. There is normal uptake of radiotracer by the liver. The bile ducts are visualized by 10 minutes. Gallbladder activity is seen by 10 minutes. Bowel activity is noted by 10 minutes. After 1 hour, 1.9 ?g of CCK was injected intravenously for calculation of gallbladder ejection fraction. The gallbladder ejection fraction is 50 to %, which is within normal limits. IMPRESSION: No evidence of cystic duct or bile duct obstruction. Normal gallbladder ejection fraction of 50 to %. Reviewed, Interpreted and Dictated by Flaco Patino MD Transcribed by Brandy Quan Authenticated and [facility]
[2023-07-25] MEDS: ISOTOPE CHOLETECH;1 DOSE (UP TO 15 MCI) IV (12:20)
[2023-07-25] MEDS: SODIUM CHLORIDE 0.9% 10ML SYR (RAD ONLY) 10 ML IV (12:20)
[2023-07-25] MEDS: SINCALIDE 1.9 MCG in 0.9 % SODIUM CHLORIDE 50 ML 100 MCG IV (12:20)
== END 2023-07-25 23:59 | disposition home or self-care (01) ==
LOC: RAD 10:17
PROVIDERS: PCP Internal Medicine; Visit Provider Internal Medicine
DX: R10.11 Right upper quadrant pain (principal)
CPT/HCPCS: 78227; A9537; J2805

== ENCOUNTER 2023-08-30 16:48 | Outpatient (CLI) | payer MEDICARE, SELFPAY ==
[2023-08-30 17:26] LABS: Basophils # 0.1 K/mm3 (0-0.2); Basophils % 1.2 % (0.1-2.0); Eosinophils # 0.2 K/mm3 (0.0-0.4); Eosinophils % 2.5 % (0.1-12.0); Hematocrit 42.6 % (37.0-47.0); Hemoglobin 14.3 g/dL (12.2-16.2); Lymphocytes # 2.4 K/mm3 (0.7-4.5); Mean Corpuscular HGB Conc 33.5 g/dL (31.8-35.4); Mean Corpuscular Hemoglobin 31.7 pg (27.0-31.2); Mean Corpuscular Volume 94.5 fl (81-99); Monocytes # 0.7 K/mm3 (0.1-1.0); Monocytes % 9.3 % (1.7-9.3); Neutrophils % 54.1 % (37.0-80.0); Platelet Count 367 K/mm3 (142-424); Red Blood Count 4.51 M/mm3 (4.20-5.40); Red Cell Distribution Width 13.3 % (11.5-17.5); White Blood Count 7.3 K/mm3 (4.8-10.8)
[2023-08-30 18:43] LABS: Alanine Aminotransferase 33 U/L (12-78); Albumin/Globulin Ratio 1.5 (1.1-1.8); Alkaline Phosphatase 71 U/L (38-126); Aspartate Amino Transferase 32 U/L (14-36); Bilirubin,Total 0.5 mg/dl (0.2-1.3); Blood Urea Nitrogen 21 mg/dl (7-17); Calcium 9.7 mg/dl (8.4-10.2); Carbon Dioxide 27 mmol/L (22.0-30.0); Chloride 101 mmol/L (98-107); Chol/HDL Ratio 4.7 (1-3.5); Cholesterol 241 mg/dl (140-200); Estimated Glomerular Filt Rate 72 ml/min (>60); GFR (African American) 87 ML/MIN (>60); Globulin 2.7 g/dL (1.3-3.2); Glucose 76 mg/dl (74-100); HDL Cholesterol 51 mg/dl (40-60); Sodium 140 mmol/L (136-145); Total Protein,Serum 6.7 g/dl (6.3-8.2); Triglycerides 266 mg/dl (30-150); VLDL Cholesterol 53 mg/dL (0-40)
[2023-08-30 19:00] LABS: Direct LDL Cholesterol 132.34 mg/dL (100-129)
[2023-08-30 19:44] LABS: Thyroid Stimulating Hormone 2.29 uIU/mL (0.465-4.68)
== END 2023-08-30 23:59 | disposition home or self-care (01) ==
LOC: LAB.DROPOF 16:48
PROVIDERS: PCP Internal Medicine; Visit Provider Internal Medicine
DX: I10 Essential (primary) hypertension (principal); E03.9 Hypothyroidism, unspecified; E78.5 Hyperlipidemia, unspecified; M17.12 Unilateral primary osteoarthritis, left knee; M47.817 Spondylosis without myelopathy or radiculopathy, lumbosacral region; M47.812 Spondylosis without myelopathy or radiculopathy, cervical region
CPT/HCPCS: 80053; 80061; 84443; 85025

== ENCOUNTER 2023-10-26 14:05 | Outpatient (CLI) | payer MEDICARE, SELFPAY ==
[2023-10-26 17:18] LABS: Basophils # 0.1 K/mm3 (0-0.2); Basophils % 1.1 % (0.1-2.0); Eosinophils # 0.2 K/mm3 (0.0-0.4); Eosinophils % 2.8 % (0.1-12.0); Hematocrit 42.8 % (37.0-47.0); Hemoglobin 14.2 g/dL (12.2-16.2); Lymphocytes # 2.1 K/mm3 (0.7-4.5); Lymphocytes % 29.8 % (10-50); Mean Corpuscular HGB Conc 33.3 g/dL (31.8-35.4); Mean Corpuscular Hemoglobin 31.4 pg (27.0-31.2); Mean Corpuscular Volume 94.3 fl (81-99); Monocytes # 0.7 K/mm3 (0.1-1.0); Monocytes % 10.3 % (1.7-9.3); Neutrophils # 3.9 K/mm3 (1.8-7.8); Neutrophils % 55.9 % (37.0-80.0); Platelet Count 400 K/mm3 (142-424); Red Blood Count 4.54 M/mm3 (4.20-5.40); Red Cell Distribution Width 13.7 % (11.5-17.5)
[2023-10-26 17:34] LABS: Alanine Aminotransferase 39 U/L (12-78); Albumin Level 4.1 g/dl (3.5-5.0); Albumin/Globulin Ratio 1.7 (1.1-1.8); Alkaline Phosphatase 64 U/L (38-126); Anion Gap 12.3 mEq/L (5-15); Aspartate Amino Transferase 33 U/L (14-36); Bilirubin,Total 0.5 mg/dl (0.2-1.3); Blood Urea Nitrogen 22 mg/dl (7-17); Calcium 10.1 mg/dl (8.4-10.2); Carbon Dioxide 29 mmol/L (22.0-30.0); Chloride 104 mmol/L (98-107); Chol/HDL Ratio 5.6 (1-3.5); Cholesterol 234 mg/dl (140-200); Estimated Glomerular Filt Rate 72 ml/min (>60); GFR (African American) 87 ML/MIN (>60); Globulin 2.4 g/dL (1.3-3.2); Glucose 77 mg/dl (74-100); HDL Cholesterol 42 mg/dl (40-60); Potassium 4.3 mmoL/L (3.5-5.1); Sodium 141 mmol/L (136-145); Total Protein,Serum 6.5 g/dl (6.3-8.2); Triglycerides 227 mg/dl (30-150); VLDL Cholesterol 45 mg/dL (0-40)
[2023-10-26 17:46] LABS: Direct LDL Cholesterol 117.64 mg/dL (100-129)
[2023-10-26 18:06] LABS: Thyroid Stimulating Hormone 2.45 uIU/mL (0.465-4.68)
[2023-10-26 18:25] LABS: Vitamin B12 657 pg/mL (239-931)
== END 2023-10-26 23:59 | disposition home or self-care (01) ==
LOC: LAB.DROPOF 10-27 14:06
PROVIDERS: PCP Internal Medicine; Visit Provider Internal Medicine
DX: I10 Essential (primary) hypertension (principal); I95.1 Orthostatic hypotension; H83.03 Labyrinthitis, bilateral; E78.5 Hyperlipidemia, unspecified; E03.9 Hypothyroidism, unspecified
CPT/HCPCS: 80050; 80053; 80061; 82607; 84443; 85025

== ENCOUNTER 2023-11-09 13:01 | Outpatient (CLI) | payer MEDICARE, SELFPAY ==
--- NOTE | 2023-11-09 13:02 | CA_ITS ---
FINAL REPORT TECHNIQUE: Right lower extremity venous duplex was performed with augmentation and compression. CLINICAL HISTORY: rt leg pain and tenderness since 11/04/23. Redness and palpable roping in medial right thigh. Heat noted in this area. Denies trauma. Patient states she began taking Eliquis daily since seeing doctor 11/07/23. HTN, COPD, obesity. COMPARISON: None FINDINGS: Proper flow is seen throughout the right lower extremity deep venous system. There is no evidence of deep venous thrombosis. There is thrombus present in the greater saphenous vein proximally, with lack of compressibility and no flow visualized. IMPRESSION: no deep venous thrombosis in the right lower extremity. There is greater saphenous vein proximal thrombosis as described above, and these results were called by the central lab technician Hazel Renteria to the ordering physician, Dr. Sorenson, 11/09/2023. Reviewed, Interpreted and Dictated by Flaco Patino MD Transcribed by Brandy Quan Authenticated and [facility]
== END 2023-11-09 23:59 | disposition home or self-care (01) ==
LOC: RT 13:02
PROVIDERS: PCP Internal Medicine; Visit Provider Internal Medicine
DX: I80.291 Phlebitis and thrombophlebitis of other deep vessels of right lower extremity (principal)
CPT/HCPCS: 93971

== ENCOUNTER 2023-12-15 16:15 | Outpatient (CLI) | payer MEDICARE, SELFPAY ==
--- NOTE | 2023-12-15 16:16 | MM_ITS ---
PROCEDURE INFORMATION: Exam: MG Bilateral Screening 3D Mammography Exam date and time: 12/15/2023 4:11 PM Age: 68 years old Clinical indication: Screening. No family history of breast cancer. TECHNIQUE: Imaging protocol: Bilateral Screening tomosynthesis and 2D mammography including computer-aided detection (CAD) when performed. COMPARISON: 1. MG MM DIG SCREENING MAMM BI W/CAD 01/15/2021 3:40 PM 2. MG MM DIG SCREENING MAMM BI W/CAD 02/04/2019 3:30 PM 3. MG SCBI MM Dig screening mamm BI w/CAD 12/29/2017 4:32 PM 4. MG DMSB DIG MAMM-SCREEN KIN 02/15/2016 11:03 AM FINDINGS: MAMMOGRAPHY: Breast composition: The breasts are heterogeneously dense, which may obscure small masses. Mass: None. Architectural distortion: None. Calcifications: No suspicious calcifications. Asymmetric density: None. Skin thickening: None. Axillary adenopathy: None. IMPRESSION: No mammographic evidence of malignancy. Annual screening is recommended unless otherwise clinically indicated. ASSESSMENT: BI-RADS Category 1: Negative.
== END 2023-12-15 23:59 | disposition home or self-care (01) ==
LOC: RAD 16:16
PROVIDERS: PCP Internal Medicine; Visit Provider Internal Medicine
DX: Z12.31 Encounter for screening mammogram for malignant neoplasm of breast (principal)
CPT/HCPCS: 77063; 77067

== ENCOUNTER 2024-02-08 09:31 | Day surgery (SDC) | payer MEDICARE, SELFPAY ==
[2024-02-02 13:41] VITALS: BMI 37.0
--- NOTE | 2024-02-02 13:55 | SUR.PREOP ---
1355: Spoke with Agnes in Dr. Benito office about resending prep prescription.
[2024-02-08 09:43] VITALS: BP 130/75; PULSE 96; RESP 16; TEMP 36.4; O2SAT 96
[2024-02-08] MEDS: LACTATED RINGERS 1000ML 1,000 ML 25 ML IV (09:49)
--- NOTE | 2024-02-08 11:05 | EXP.ANES.CKL ---
[facility] Disclaimer: The information contained in this section may have been updated after the patient was seen, as this information can be updated by other users. Medical History Arthritis Carpal tunnel syndrome High blood pressure Depression COPD (chronic obstructive pulmonary disease) Surgical History H/O spinal fusion H/O lumpectomy H/O: hysterectomy Family History Mother Cancer Coronary artery disease Social History Smoking Status: Former smoker alcohol intake: never substance use type: denies use current occupational status: employed Travel in the last 8 weeks: None [facility] Anesthesia Checklist Patient Identification Patient Identification: Arm Band Structural Data Admitted From: Home Planned Operative Procedure/s: Colonoscopy Consent for Planned Operative Procedure(s) Verified: Yes Verified Documents: Surgical Consent and History and Physical NPO Status Verified Time NPO: 00:00 Additional verifications Anesthesia Reactions: No Airway Assessment Mallampati Score:: Class II C-Spine Mobility Assessed: Yes TMJ Mobility Assessed: Yes Dentition: Edentulous Neurological Assessment Level of Consciousness: Awake, Alert and Appropriate Anesthesia Plan Anesthesia Risk discussed: Yes Anesthesia Plan: Verified ASA Class: III Anesthesia Type: MAC
[2024-02-08 11:31] VITALS: O2SAT 100
--- NOTE | 2024-02-08 11:39 | P.HP_ITS ---
History of Present Illness *Admission Date: 02/08/24 *Reason for visit:: Right upper quadrant abdominal pain/bloating *History of present illness: Mrs. Souza is a 69-year-old female who is here for diagnostic colonoscopy secondary to right upper quadrant abdominal pain and bloating. The patient's last colonoscopy was 11 years ago. The examination is deemed medically necessary for colonoscopy. The patient has been seen, interviewed and examined prior to the procedure by both myself and the anesthesia provider. [facility] Disclaimer: The information contained in this section may have been updated after the patient was seen, as this information can be updated by other users. Medical History (Updated 02/08/24 @ 11:40 by Donnell Benito II, MD) Arthritis Carpal tunnel syndrome High blood pressure Depression COPD (chronic obstructive pulmonary disease) Surgical History H/O spinal fusion H/O lumpectomy H/O: hysterectomy Family History Mother Cancer Coronary artery disease Social History (Updated 02/08/24 @ 11:06 by Georgi Fowler CRNA) Smoking Status: Former smoker alcohol intake: never substance use type: denies use current occupational status: employed Travel in the last 8 weeks: None Other Medical History Have you received the Flu Vaccine for this season: No Have you received the Pneumonia Vaccine: Yes Review of Systems Review of Systems Review of systems (narrative): Negative *Cardiovascular Comments: Negative *Gastrointestinal Comments: Negative *Genitourinary Comments: Negative *Musculoskeletal Comments: Negative *Neurologic Comments: Negative Meds Home Medications and Allergies Home Medications ?Medication ?Instructions ?Recorded ?Confirmed ?Type triamterene 37.5 1 tab PO DAILY 09/17/18 02/02/24 History mg-hydrochlorothiazide 25 mg tablet (Maxzide-25mg) albuterol sulfate 90 mcg/actuation 2 inh inhalation Q6H PRN soa 01/11/23 02/02/24 History breath activated powder inhaler omeprazole 40 mg capsule,delayed 40 mg PO DAILY 01/11/23 02/02/24 History release cyclobenzaprine 5 mg tablet 5 mg PO TID PRN Back Pain 10/26/23 02/02/24 History levothyroxine 88 mcg capsule 88 mcg PO DAILY 10/26/23 02/02/24 History meloxicam 7.5 mg tablet 7.5 mg PO DAILY PRN Dizziness Or 10/26/23 02/02/24 History Vertigo losartan 50 mg tablet 50 mg PO DAILY #30 tabs 11/16/23 02/02/24 Rx sod picosulf 10 mg-magnes 3.5 175 ml PO DAILY 2 doses #350 mL 11/28/23 02/02/24 Rx gram-citric 12 gram/175 mL oral solution (Clenpiq) meloxicam 7.5 mg tablet See Rx Instructions .Route 01/11/24 02/02/24 Rx .COMPLEX #60 tabs New Prescriptions to Start Prescriptions: Allergies Allergy/AdvReac Type Severity Reaction Status Date / Time codeine [CODEINE] Allergy Unknown HYPER, Verified 02/08/24 09:41 RESTLESS Penicillins [PENICILLINS] Allergy Unknown RESP Verified 02/08/24 09:41 DISTRESS Exam Data for Last 24 hours Vital signs and Labs for Last 24 Hours: Temp Pulse Resp BP Pulse Ox O2 Del Method O2 Flow Rate 97.5 F L 96 H 16 130/75 96 Nasal Cannula 36 02/08/24 09:43 02/08/24 09:43 02/08/24 09:43 02/08/24 09:43 02/08/24 09:43 02/08/24 11:31 02/08/24 11:31 *Routine HEENT Exam Head: Present normocephalic Eye: Present EOMI and PERRL ENT: Present mucous membranes moist *Routine Neck Exam Neck: Present supple *Routine Respiratory Exam Respiratory: Present CTA bilaterally *Routine Cardiovascular Exam Cardiovascular: Present RRR *Routine Abdominal Exam Abdominal: Present soft and normoactive bowel sounds; Absent tenderness *Routine Rectal Exam Rectal:: deferred *Routine Genitalia Exam Genitalia:: deferred *Routine Extremities Exam Extremities: Absent cyanosis, clubbing or edema *Routine Skin Exam Skin: Present warm; Absent rash *Routine Neurological Exam Neurological: Present alert and oriented X3 Assessment and Plan *Assessment and plan (1) Right upper quadrant abdominal pain: Status: Acute Category: Medical Code(s): R10.11 - Right upper quadrant pain (2) Bloating: Status: Acute Category: Medical Code(s): R14.0 - Abdominal distension (gaseous) Plan A/P: 1. Right upper quadrant abdominal pain and bloating is the preprocedural diagnosis. The patient will be anesthetized/sedated using MAC sedation. The patient has been seen and examined. Cardiac and lung assessment prior to the examination is stable. Proceed with planned diagnostic colonoscopy
--- NOTE | 2024-02-08 11:40 | P.PCN_ITS ---
[facility] Procedure Note Date: 02/08/24 Time: 11:55 Procedure Note:: Colonoscopy Procedure Report: Colonoscopy with cold snare polypectomy Endoscopist: Donnell Benito II, MD Referring physician: Joe Sorenson MD Date of Procedure: February 08, 2024 Equipment: Olympus 190 variable stiffness pediatric colonoscope Sedation: MAC sedation Indication: Mrs. Souza is a 69-year-old female who is here for diagnostic colonoscopy secondary to right upper quadrant abdominal pain and bloating. She will have occasional nausea and early satiety. She has some gassiness. She reports regular bowel function. She has had no rectal bleeding or weight loss. She did have a normal gallbladder ultrasound. Her pain has improved some with PPI therapy (Omeprazole). She does take a probiotic daily. She does state that her niece and cousin had colon cancer. Her last colonoscopy was 11 years ago. Procedure: Prior to the procedure, a history and physical exam was performed, and patient's medications and allergies were reviewed. The risks, benefits and alternatives of the sedation and procedure were discussed with the patient. All questions were answered and informed consent was obtained. The patient was brought to the procedure room. Patient identification and proposed procedure were verified by the physician and the nurse. The patient was placed in a left lateral decubitus position and the scope was passed under direct vision. Throughout the procedure, the patient's blood pressure, pulse, and oxygen saturations were monitored continuously. The colonoscopy was accomplished without difficulty. The patient tolerated the procedure well. Findings: On digital rectal examination there was normal rectal tone. There were no external hemorrhoids. The colonoscope was introduced through the anal canal to the rectum and advanced to the cecum. The ileocecal valve and appendiceal orifice were identified. The scope was advanced a short distance into the ileum which appeared grossly normal. The scope was then withdrawn into the colon. The cecum, ascending and transverse colon and mucosa were grossly normal. There were 2 diminutive polyps in the descending colon (3 and 4 mm) that were hyperplastic appearing polyps and removed via cold snare polypectomy. There were scattered diverticuli throughout the descending and sigmoid colon (LEFT colon). The rectum itself was normal. Upon retroflexion within the rectum there were grade 1 internal hemorrhoids. The preparation was excellent throughout with [place] Preparation Score of 9. The cecal time was 12 minutes. Impression: 1. Diminutive hyperplastic appearing descending polyps x 2 2. Left-sided diverticulosis 3. Grade 1 internal hemorrhoids Plan: If these polyps are hyperplastic, she will not require surveillance colonoscopy again for 10 years. 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 We will discuss dietary measures and treatment options.
[2024-02-08 12:00] VITALS: BP 162/78; PULSE 80; RESP 16; O2SAT 99
[2024-02-08 12:10] VITALS: BP 123/74; PULSE 76; RESP 18; O2SAT 97
[2024-02-08 12:20] VITALS: BP 126/68; PULSE 74; RESP 18; O2SAT 95
[2024-02-08 12:30] VITALS: BP 153/85; PULSE 76; RESP 18; O2SAT 96
== END 2024-02-08 12:52 | disposition home or self-care (01) ==
LOC: OUTP 09:32
PROVIDERS: PCP Internal Medicine; Visit Provider Internal Medicine Gastroenterology
PROC: 0DJD8ZZ Inspection of Lower Intestinal Tract, Via Natural or Artificial Opening Endoscopic (ICD-10-PCS; CPT 45378; principal; 2024-02-08 11:00)
DX: D12.4 Benign neoplasm of descending colon (principal); K64.0 First degree hemorrhoids; K57.30 Diverticulosis of large intestine without perforation or abscess without bleeding; R10.11 Right upper quadrant pain; R14.0 Abdominal distension (gaseous); Z79.899 Other long term (current) drug therapy; Z80.0 Family history of malignant neoplasm of digestive organs
CPT/HCPCS: 45385; 88305; J7120

== ENCOUNTER 2024-03-11 12:51 | Outpatient (CLI) | payer MEDICARE, SELFPAY ==
--- NOTE | 2024-03-11 12:51 | CT_ITS ---
FINAL REPORT CLINICAL HISTORY: lung cancer screening. PRIOR SMOKER. QUIT 8 YEARS AGO. SMOKED 2.5 PACKS FOR 50 YEARS FINDINGS: CTDI vol (mGy): 2.90 DLP: 108.[address] images of the chest were obtained using the low-dose protocol for screening. There is no evidence of mediastinal or hilar mass or adenopathy. No axillary mass or adenopathy is identified. On the lung window images, no pulmonary mass or suspicious nodule is identified. A calcified granuloma is noted at the left lung base. IMPRESSION: Lung RADS category 1 . Recommend 12 month followup low-dose CT for further evaluation. Reviewed, Interpreted and Dictated by Gilberto Cardenas III, MD Transcribed by Rashida Genao Authenticated and [facility]
== END 2024-03-11 23:59 | disposition home or self-care (01) ==
LOC: RAD 12:51
PROVIDERS: PCP Internal Medicine; Visit Provider Internal Medicine
DX: Z87.891 Personal history of nicotine dependence (principal); Z12.2 Encounter for screening for malignant neoplasm of respiratory organs
CPT/HCPCS: 71271

== ENCOUNTER 2024-06-26 14:25 | Outpatient (CLI) | payer MEDICARE, SELFPAY ==
--- NOTE | 2024-06-26 14:28 | XR_ITS ---
FINAL REPORT CLINICAL HISTORY: Left lumbar back pain COMPARISON: 08/15/2022 FINDINGS: LUMBOSACRAL SPINE SERIES Five views of the lumbosacral spine were obtained. There is no fracture present. There is no malalignment. Mild diffuse degenerative disc disease. Moderate facet arthropathy. IMPRESSION: Lower lumbar degenerative changes. Reviewed, Interpreted and Dictated by Shaheen Salgado MD Transcribed by Elda Hunter Authenticated and [facility]
[2024-06-26 17:21] LABS: Basophils # 0.1 K/mm3 (0-0.2); Basophils % 0.8 % (0.1-2.0); Eosinophils # 0.2 K/mm3 (0.0-0.4); Eosinophils % 2.9 % (0.1-12.0); Hematocrit 39.5 % (37.0-47.0); Hemoglobin 13.4 g/dL (12.2-16.2); Lymphocytes # 2.7 K/mm3 (0.7-4.5); Mean Corpuscular HGB Conc 33.9 g/dL (31.8-35.4); Mean Corpuscular Hemoglobin 30.5 pg (27.0-31.2); Mean Corpuscular Volume 89.8 fl (81-99); Monocytes # 0.7 K/mm3 (0.1-1.0); Monocytes % 9.7 % (1.7-9.3); Neutrophils # 3.6 K/mm3 (1.8-7.8); Neutrophils % 49.3 % (37.0-80.0); Platelet Count 375 K/mm3 (142-424); Red Cell Distribution Width 12.2 % (11.5-17.5); White Blood Count 7.4 K/mm3 (4.8-10.8)
[2024-06-26 18:08] LABS: Alanine Aminotransferase 29 U/L (12-78); Albumin Level 4.7 g/dl (3.5-5.0); Alkaline Phosphatase 70 U/L (38-126); Anion Gap 12.5 mEq/L (5-15); Aspartate Amino Transferase 28 U/L (14-36); Bilirubin,Total 0.4 mg/dl (0.2-1.3); Blood Urea Nitrogen 21 mg/dl (7-17); Calcium 11.1 mg/dl (8.4-10.2); Carbon Dioxide 27 mmol/L (22.0-30.0); Chloride 101 mmol/L (98-107); Estimated Glomerular Filt Rate 83 ml/min (>60); GFR (African American) 101 ML/MIN (>60); Globulin 2.3 g/dL (1.3-3.2); Glucose 76 mg/dl (74-100); HDL Cholesterol 39 mg/dl (40-60); Potassium 4.5 mmoL/L (3.5-5.1); Sodium 136 mmol/L (136-145)
[2024-06-26 18:20] LABS: Direct LDL Cholesterol 104.44 mg/dL (100-129)
[2024-06-26 18:38] LABS: Thyroid Stimulating Hormone 0.92 uIU/mL (0.465-4.68)
[2024-06-26 19:30] LABS: Chol/HDL Ratio 5.7 (1-3.5); Cholesterol 224 mg/dl (140-200); Triglycerides 312 mg/dl (30-150); VLDL Cholesterol 62 mg/dL (0-40)
== END 2024-06-26 23:59 | disposition home or self-care (01) ==
LOC: RAD 14:26
PROVIDERS: PCP Internal Medicine; Visit Provider Internal Medicine
DX: M15.0 Primary generalized (osteo)arthritis (principal); M54.50 Low back pain, unspecified; I10 Essential (primary) hypertension; E78.5 Hyperlipidemia, unspecified; E03.9 Hypothyroidism, unspecified
CPT/HCPCS: 72110; 80053; 80061; 84443; 85025

== ENCOUNTER 2024-07-10 16:13 | Outpatient (CLI) | payer MEDICARE, SELFPAY ==
[2024-07-10 17:08] LABS: Phosphorous 4.4 mg/dl (2.5-4.5)
== END 2024-07-10 23:59 | disposition home or self-care (01) ==
LOC: LAB.DROPOF 16:13
PROVIDERS: PCP Internal Medicine; Visit Provider Internal Medicine
DX: E83.52 Hypercalcemia (principal); R77.2 Abnormality of alphafetoprotein
CPT/HCPCS: 82310; 84100

== ENCOUNTER 2024-12-02 11:05 | Outpatient (CLI) | payer MEDICARE, SELFPAY ==
[2024-12-02 15:06] LABS: Albumin Level 4.3 g/dl (3.5-5.0); Chloride 104 mmol/L (98-107); Sodium 140 mmol/L (136-145)
[2024-12-02 15:07] LABS: Potassium 4.9 mmoL/L (3.5-5.1)
[2024-12-02 15:09] LABS: Alanine Aminotransferase 22 U/L (12-78); Albumin/Globulin Ratio 1.7 (1.1-1.8); Anion Gap 12.9 mEq/L (5-15); Aspartate Amino Transferase 27 U/L (14-36); Blood Urea Nitrogen 16 mg/dl (7-17); Carbon Dioxide 28 mmol/L (22.0-30.0); Creatinine,Serum 0.80 mg/dl (0.52-1.04); Estimated Glomerular Filt Rate 72 ml/min (>60); GFR (African American) 87 ML/MIN (>60); Globulin 2.5 g/dL (1.3-3.2); Total Protein,Serum 6.8 g/dl (6.3-8.2)
[2024-12-02 15:10] LABS: Alkaline Phosphatase 72 U/L (38-126); Bilirubin,Total 0.4 mg/dl (0.2-1.3); Calcium 10.1 mg/dl (8.4-10.2); Cholesterol 207 mg/dl (140-200); Glucose 85 mg/dl (74-100); HDL Cholesterol 47 mg/dl (40-60); Magnesium 1.7 mg/dl (1.6-2.3); Triglycerides 156 mg/dl (30-150)
[2024-12-02 15:39] LABS: Thyroid Stimulating Hormone 1.13 uIU/mL (0.465-4.68)
[2024-12-02 15:57] LABS: Hepatitis C Ab Qual. W/ RFX NEGATIVE (Negative)
[2024-12-03 09:52] LABS: Hepatitis B Surface Antigen Negative (Negative)
== END 2024-12-02 23:59 | disposition home or self-care (01) ==
LOC: LAB.DROPOF 12-04 12:24
PROVIDERS: PCP Internal Medicine; Visit Provider Internal Medicine
DX: I10 Essential (primary) hypertension (principal); Z11.59 Encounter for screening for other viral diseases; E78.5 Hyperlipidemia, unspecified; E03.9 Hypothyroidism, unspecified; G47.62 Sleep related leg cramps
CPT/HCPCS: 80053; 80061; 83735; 84443; 86803; 87340; 87389

== ENCOUNTER 2024-12-27 10:46 | Outpatient (CLI) | payer MEDICARE, SELFPAY ==
--- NOTE | 2024-12-27 11:00 | MM_ITS ---
PROCEDURE INFORMATION: Exam: MG Bilateral Screening 3D Mammography Exam date and time: 12/27/2024 10:47 AM Age: 69 years old Clinical indication: Screening examination. TECHNIQUE: Imaging protocol: Bilateral Screening tomosynthesis and 2D mammography including computer-aided detection (CAD) when performed. COMPARISON: MG MM DIG SCREENING MAMM BI W/CAD 12/15/2023 4:11 PM FINDINGS: MAMMOGRAPHY: Breast composition: There are scattered areas of fibroglandular density. Mass: None. Architectural distortion: None. Calcifications: No suspicious calcifications. Asymmetric density: None. Skin thickening: None. Axillary adenopathy: None. IMPRESSION: No mammographic evidence of malignancy. Annual screening is recommended unless otherwise clinically indicated. ASSESSMENT: BI-RADS Category 1: Negative.
== END 2024-12-27 23:59 | disposition home or self-care (01) ==
LOC: RAD 10:46
PROVIDERS: PCP Internal Medicine; Visit Provider Internal Medicine
DX: Z12.31 Encounter for screening mammogram for malignant neoplasm of breast (principal); R92.323 Mammographic fibroglandular density, bilateral breasts
CPT/HCPCS: 77063; 77067

== ENCOUNTER 2025-01-17 10:01 | Outpatient (CLI) | payer MEDICARE, SELFPAY ==
--- NOTE | 2025-01-17 10:04 | XR_ITS ---
FINAL REPORT CLINICAL HISTORY: right knee pain FINDINGS: RIGHT KNEE Three views were obtained. There is no acute fracture or dislocation. There is moderate medial compartment degenerative change. No acute soft tissue abnormality is seen. IMPRESSION: Degenerative change with no acute bony abnormality. Reviewed, Interpreted and Dictated by Dennis Jolly MD Transcribed by Traci Lopez Authenticated and [facility]
--- NOTE | 2025-01-17 10:04 | XR_ITS ---
FINAL REPORT CLINICAL HISTORY: left knee pain COMPARISON: 09/17/2018 FINDINGS: AP, lateral and oblique views of the left knee were obtained. . There is no acute osseous abnormality of the left knee. There is degenerative joint disease. The soft tissues are normal. There is no joint effusion. IMPRESSION: Degenerative change without acute osseous abnormality of the left knee. Reviewed, Interpreted and Dictated by Christie Landa MD Transcribed by Elda Hunter Authenticated and [facility]
== END 2025-01-17 23:59 | disposition home or self-care (01) ==
LOC: RAD 10:01
PROVIDERS: PCP Internal Medicine; Visit Provider Orthopaedic Surgery
DX: M17.11 Unilateral primary osteoarthritis, right knee (principal); M17.12 Unilateral primary osteoarthritis, left knee
CPT/HCPCS: 73562

== ENCOUNTER 2025-02-03 11:04 | Outpatient (CLI) | payer MEDICARE, SELFPAY ==
--- NOTE | 2025-02-03 13:45 | CA_ITS ---
FINAL REPORT TECHNIQUE: Ultrasound imaging of the left lower extremity was obtained. CLINICAL HISTORY: LEFT CALF PAIN AND TENDERNESS,HX OF SVT'S FINDINGS: There is thrombus in the distal left greater saphenous vein extending to the mid greater saphenous vein. Remaining veins in the left lower extremity are patent. IMPRESSION: Deep venous thrombosis of the greater saphenous vein of the left lower extremity. Reviewed, Interpreted and Dictated by Flaco Patino MD Transcribed by Rashiad Genao Authenticated and [facility]
== END 2025-02-03 23:59 | disposition home or self-care (01) ==
LOC: RT 11:04
PROVIDERS: PCP Internal Medicine; Visit Provider Internal Medicine
DX: I82.812 Embolism and thrombosis of superficial veins of left lower extremity (principal)
CPT/HCPCS: 93971

== ENCOUNTER 2025-02-07 15:00 | Emergency (ER) | payer MEDICARE, SELFPAY ==
[2025-02-07 15:02] VITALS: BP 166/70; PULSE 85; RESP 18; TEMP 36.8; O2SAT 99; BMI 31.5
--- NOTE | 2025-02-07 15:33 | [facility].EDGENADL ---
Discharge Plan Disposition Patient Disposition: Home, Self-Care Condition: Good Prescriptions Prescriptions: No Action albuterol sulfate 90 mcg/actuation aerosol powdr breath activated 2 inh inhalation Q6H PRN (Reason: soa) diclofenac sodium 75 mg tablet,delayed release (DR/EC) 75 mg PO BID Qty: 60 2RF Rx Instructions: Take with food or meal Eliquis 5 mg tablet See Rx Instructions PO .COMPLEX Qty: 70 3RF Rx Instructions: 2 p.o. twice a day for 1 week, then 1 p.o. twice a day cyclobenzaprine 5 mg tablet See Rx Instructions .ROUTE .COMPLEX Qty: 30 2RF Dose Instruction: TAKE ONE TABLET BY MOUTH THREE TIMES DAILY NEEDED FOR MUSCLE SPASMS MAY CAUSE DROWSINESS Rx Instructions: TAKE ONE TABLET BY MOUTH THREE TIMES DAILY NEEDED FOR MUSCLE SPASMS MAY CAUSE DROWSINESS omeprazole 40 mg capsule,delayed release(DR/EC) See Rx Instructions .ROUTE .COMPLEX Qty: 90 1RF Dose Instruction: TAKE ONE TABLET BY MOUTH EVERY DAY Rx Instructions: TAKE ONE TABLET BY MOUTH EVERY DAY triamterene-hydrochlorothiazid 37.5-25 mg tablet See Rx Instructions .ROUTE .COMPLEX Qty: 90 1RF Dose Instruction: TAKE ONE TABLET BY MOUTH EVERY DAY Rx Instructions: TAKE ONE TABLET BY MOUTH EVERY DAY levothyroxine 88 mcg tablet See Rx Instructions .ROUTE .COMPLEX Qty: 90 1RF Dose Instruction: TAKE ONE TABLET BY MOUTH EVERY DAY Rx Instructions: TAKE ONE TABLET BY MOUTH EVERY DAY losartan 50 mg tablet 50 mg PO DAILY Qty: 90 1RF Referrals Follow up/Referrals: Joe Sorenson MD [Primary Care Provider, Medical] - See instructions Activity Restrictions/Add. Instructions Additional Instructions/Restrictions: Your DVT is in the greater saphenous vein on your left leg. Please follow precautions using the compression stockings, elevating your leg, using warm compresses and taking your Eliquis. If you have any chest pain or shortness of breath please return to the ED. Do not take ibuprofen, naproxen in addition to the Eliquis. You may take Tylenol for pain if needed. Please follow-up with your PCP for any other issues. Clinical Impressions Clinical Impression: Left leg DVT Instructions Patient Instructions: Deep Vein Thrombosis Print Language Print Language: Icelandic Discharge ED Provider: Molly Ren Adult HPI General Chief complaint: PAIN Stated complaint: blood clot in thigh Time Seen by Provider: 02/07/25 15:10 Mode of Arrival: Ambulatory Source of Information: Patient Description of Symptoms (Recalled from ER Triage Doc. by RN): elly presents to the ER for a known DVT that was diagnosed on 02/[address] Sorenson in office. elly was prescribed Eliquis and told to take 10 mg in the mornign and 10 mg at night. Elly stated her left high is now hurting and swollen in some spots whcih is why she is here. History of Present Illness HPI narrative: 70-year-old female presents to the ED today for complaint of being diagnosed with DVT on 1026. Patient ultrasound says that the DVT is in the left greater saphenous vein. Patient was prescribed Eliquis and she is taking it. We discussed the dosage. She says that she thinks the clot is moved. She says that the clot was in the calf and now its moved up to her thigh. After discussion and exam patient's clot was found in her greater saphenous vein and was never in her calf or lower leg at all. Related Data Home Medications ?Medication ?Instructions ?Recorded ?Confirmed albuterol sulfate 90 mcg/actuation 2 inh inhalation Q6H PRN soa 01/11/23 02/06/25 breath activated powder inhaler Previous Rx's ?Medication ?Instructions ?Recorded cyclobenzaprine 5 mg tablet See Rx Instructions .Route 02/13/24 .COMPLEX #30 tabs omeprazole 40 mg capsule,delayed See Rx Instructions .Route 08/29/24 release .COMPLEX #90 caps triamterene 37.5 See Rx Instructions .Route 08/29/24 mg-hydrochlorothiazide 25 mg tablet .COMPLEX #90 tabs levothyroxine 88 mcg tablet See Rx Instructions .Route 10/15/24 .COMPLEX #90 tabs diclofenac sodium 75 mg 75 mg PO BID #60 tabs 01/07/25 tablet,delayed release losartan 50 mg tablet 50 mg PO DAILY #90 tabs 01/29/25 apixaban 5 mg tablet (Eliquis) See Rx Instructions PO .COMPLEX 02/03/25 #70 tabs Allergies Allergy/AdvReac Type Severity Reaction Status Date / Time codeine (CODEINE) Allergy Unknown HYPER, Verified 02/06/25 09:10 RESTLESS Penicillins (PENICILLINS) Allergy Unknown RESP Verified 02/06/25 09:10 [facility] Disclaimer: The information contained in this section may have been updated after the patient was seen, as this information can be updated by other users. Medical History Arthritis Carpal tunnel syndrome High blood pressure Depression COPD (chronic obstructive pulmonary disease) Surgical History H/O spinal fusion H/O lumpectomy H/O: hysterectomy Family History Mother Cancer Coronary artery disease Social History Smoking Status: Never smoker alcohol intake: never substance use type: denies use current occupational status: employed Travel in the last 8 weeks?: None Have you lived/traveled outside [place] in past 30 days?: No Contact w/someone who lives/traveled outside US past 30 days?: No Exposure to someone with infectious disease in past 14 days?: No Do you have a fever (greater than 100.4 F or 38 C)?: No Have you tested positive for COVID-19?: No Exposed to someone with COVID-19 in past 14 days?: No Do you have a sore throat?: No Do you have a cough?: No Do you have any weakness?: No Do you have any diarrhea?: No Are you experiencing any unusual bleeding?: No Do you have any muscle aches/pain?: No Do you have any abdominal pain?: No Are you experiencing loss of taste or smell?: No Other Medical History Have you received the Flu Vaccine for this season: No Have you received the Pneumonia Vaccine: No ROS Obtained: Yes Systems reviewed as appropriate & no additional complaints except as documented Constitutional Constitutional: Reports as per HPI Physical Exam General General appearance: alert Head Head exam: normocephalic Eye Eye exam: Present PERRL and EOMI ENT ENT exam: Present normal oropharynx and mucous membranes moist Neck Neck exam: Present full ROM and trachea midline Respiratory Respiratory exam: Present normal lung sounds bilaterally Cardiovascular Cardiovascular exam: Present normal rhythm Extremities Exam Extremities exam: Present full ROM, tenderness (Left upper leg pain) and normal capillary refill Neurological Exam Neurological exam: Present alert and oriented X3 Skin Skin exam: Present warm and dry Medical Decision Making Medical Records Screening: Per USPSTF and CDC recommendations, given the prevalence of disease in our region, it is our hospital?s policy to screen for HIV and viral Hepatitis for all patients aged 18 and over and those with ongoing risk factors. Kris Inquiry Pt receiving controlled substance: No Kris was queried for this patient: No Vital Signs: 02/07/25 15:02 02/07/25 15:46 Temperature 98.2 F 97.9 F Temperature Source Oral Oral Pulse Rate 84 Pulse Rate [Right Radial] 85 Respiratory Rate 18 16 Blood Pressure 134/74 Blood Pressure [Right Arm] 166/70 H Blood Pressure Mean [Right Arm] 102 Blood Pressure Source Automatic Cuff Blood Pressure Source [Right Arm] Automatic Cuff Blood Pressure Position Sitting Blood Pressure Position [Right Arm] Sitting 02 Sat by Pulse Oximetry 99 Oxygen Delivery Method Room Air Room Air Medical Decision Narrative: 70-year-old female presents today for left upper leg pain. She is hemodynamically stable and afebrile. Patient had a DVT ultrasound on Monday and was told she had a greater saphenous DVT of her left leg. She was placed on Eliquis and has been taking it regularly since Monday. She was concerned that it moved. Because she had pain in her left upper leg. Initially her pain was in her lower leg. I explained that the clot has never been in her left lower leg it was started in her left upper leg. She just has phlebitis in her left lower leg. Patient is not having chest pain or shortness of breath. She does have COPD. Patient and I had a discussion about when to come back and what to take and what not to take with her Eliquis. Patient is safe for discharge home at this point I gave her strict return precautions. Critical Care Critical Care Time Critical Care Time: No
[2025-02-07 15:46] VITALS: BP 134/74; PULSE 84; RESP 16; TEMP 36.6; O2SAT 94
== END 2025-02-07 15:51 | disposition home or self-care (01) ==
PROVIDERS: Emergency Provider Student in an Organized Health Care Education/Training Program; PCP Internal Medicine
DX: I82.402 Acute embolism and thrombosis of unspecified deep veins of left lower extremity (principal); Z79.01 Long term (current) use of anticoagulants
CPT/HCPCS: 99282